=== PATIENT | female | born 1950 | race Caucasian/White ===

== ENCOUNTER → 2018-03-26 | Outpatient (CLI) | payer MEDICARE, OTHER ==
[~2018-03-26] MED LIST: FEXPSEER PO
[2018-03-28 15:07] LABS: HPV 16 Negative (Negative); HPV 18 Negative (Negative); HPV OTHER HR TYPES Negative (Negative)
== END ==
LOC: LAB SHORT 18:04 → LAB 18:04
PROVIDERS: Nurse Practitioner Women's Health
DX: Z12.4 Encounter for screening for malignant neoplasm of cervix (principal); Z91.89 Other specified personal risk factors, not elsewhere classified
CPT/HCPCS: 87624; G0123

== ENCOUNTER → 2019-06-12 | Outpatient (CLI) | payer MEDICARE, OTHER ==
[2019-06-17 15:07] LABS: HPV 16 Negative (Negative); HPV 18 Negative (Negative); HPV OTHER HR TYPES Negative (Negative)
== END | disposition home or self-care (01) ==
LOC: LAB SHORT 12:58 → LAB 12:58
PROVIDERS: Nurse Practitioner Women's Health
DX: Z12.4 Encounter for screening for malignant neoplasm of cervix (principal); Z91.89 Other specified personal risk factors, not elsewhere classified
CPT/HCPCS: 87624; G0123

== ENCOUNTER 2023-03-13 08:31 | Day surgery (SDC) | payer MEDICARE, OTHER ==
[2023-03-13] VITALS (17 sets, daily range): BP systolic 95–149; BP diastolic 51–81
[~2023-03-13] VITALS: Ht 160 cm; Wt 79.6 kg
[~2023-03-13 08:31] MED LIST changes: +HYDR1TAB94 PO; +L-LYSINE500 M1 PO; +LOSA25 PO; +MAGCHL64ER PO; +MELO7.5 PO; +MULVITA PO; +TERB250 PO; +VITAMIN D310 MC4 PO
[2023-03-13] MEDS ORDERED: MAGNESIUM (10:08)
[2023-03-13] MEDS ORDERED: CALCIUM CIT 311 EAC7 (10:11)
--- NOTE | 2023-03-13 10:55 | NUR ---
W/C inTO Day Surgery. Patient confirms NPO status and agrees with scheduled surgery. Pre-Op teaching done. Pt verbalizes understanding. History, Chart, Medications and Allergies reviewed before start of procedure.
--- NOTE | 2023-03-13 17:55 | NUR ---
ADMIT NOTE NEW ADMIT TO UNIT POD [address] BLANK. ALERT, ORIENTED, PLEASANT, AND COOPERATIVE. SPOUSE AND SISTER ATTENTIVE AT BEDSIDE. POST OP VSS. ROOM AIR. DENIES CHEST PAIN AND SOB. TOLERATING REGULAR DIET AND LIQUIDS. SALINE LOCKED. REPORTS MILD PAIN TO RIGHT KNEE, MEDICATED PER EMAR. SPINAL WEARING OFF WELL, REPORTS FULL SENSATION TO BLE, WIGGLES TOES AND ANKLES BILAT. R INCISION WNL UNDER AQUACEL, MABEL WRAP COMPRESSION STOCKING, SCD'S, AND POLAR PACK. NOT UP OUT OF BED AT THIS TIME. NO VOID AT THIS TIME.
[2023-03-14 04:06] VITALS: BP 114/81
[2023-03-14 04:27] LABS: BASOPHILS ABSOLUTE AUTO 0.02 K/mm3 (0.00-0.23); BASOPHILS PERCENT AUTO 0 % (0-2); EOSINOPHILS PERCENT AUTO 0 % (0-6); Hematocrit 37.7 % (33.0-51.0); Hemoglobin 12.5 g/dL (11.5-16.0); IMMATURE GRAN ABSOLUTE AUTO 0.06 K/mm3 (0.00-0.10); IMMATURE GRAN PERCENT AUTO 0 % (0-1); LYMPHOCYTES PERCENT AUTO 10 % (21-46); MONOCYTES ABSOLUTE AUTO 0.82 K/mm3 (0.16-1.47); MONOCYTES PERCENT AUTO 5 % (4-13); Mean Corpuscular HGB 30.2 pg (26.0-34.0); Mean Corpuscular HGB Conc 33.2 g/dL (31.5-36.5); Mean Corpuscular Volume 91 fL (80-100); Mean Platelet Volume 10.2 fL (9.1-12.4); NEUTROPHILS ABSOLUTE AUTO 13.53 K/mm3 (1.96-9.15); NEUTROPHILS PERCENT AUTO 84 % (41-73); Platelet Count 241 K/mm3 (150-400); RDW Coefficient Variation 13.3 % (11.7-14.2); RDW Standard Deviation 44.5 fL (35.1-46.3); Red Blood Cell Count 4.14 M/mm3 (3.80-5.20); White Blood Cell Count 16.03 K/mm3 (4.00-11.30)
--- NOTE | 2023-03-14 04:59 | NUR ---
SHIFT SUMMARY POD 1 R TKA, POLAR PACK IN PLACE, AQUACEL C/D/I. SBA TO BATHROOM W/ FWW/ GB, TOLERATED WELL. PT W/ HIGH ANXIETY AND WORRISOME. A&OX4, PLEASANT AND COOPERATIVE, VSS. NO ACUTE CHANGES THIS SHIFT. PT PLANS FOR DC TODAY. CALL LIGHT W/IN REACH
[2023-03-14 05:05] LABS: Bun/Creatinine Ratio 19.9 (12.0-20.0); Calcium, Blood 8.4 mg/dL (8.5-10.1); Creatinine, Blood 0.75 mg/dL (0.40-1.00); Potassium, Blood 4.2 mmol/L (3.5-5.5)
[2023-03-14 07:09] VITALS: BP 129/74
[2023-03-14] MEDS ORDERED: Percocet 5-3251 EACH PO (07:56)
[2023-03-14] MEDS ORDERED: ASPI81CH PO (07:56)
--- NOTE | 2023-03-14 11:01 | NUR ---
DISCHARGE PT HAS CLEARED THERAPY. PAIN WELL CONTROLLED w TYLENOL ONLY. VERY CONCERNED OF DEVELOPING NAUSEA; ZOFRAN SCRIPT CALLED IN. EATING, DRINKING, & VOIDING WELL. DARIELA & KARIS FOY SENT w/ PT. ESCORTED OUT VIA W/C.
== END 2023-03-14 11:01 | disposition home or self-care (01) ==
LOC: ORSCMMR 08:31 → ORD 10:00 → ORSCMMR 10:00 → ORD 11:15 → SURS 15:31 → ORSCMMR 03-14 11:01
PROVIDERS: Orthopaedic Surgery
PROC: 0SRC0JA Replacement of Right Knee Joint with Synthetic Substitute, Uncemented, Open Approach (ICD-10-PCS; principal; 2023-03-13 10:00)
DX: M17.11 Unilateral primary osteoarthritis, right knee (principal); I10 Essential (primary) hypertension; Z79.899 Other long term (current) drug therapy
CPT/HCPCS: 36415; 73560-RT; 80048; 85025; 97110; 97116; 97161; A9270; C1776; J0171; J0690; J0735; J1100; J1170; J1885; J2250; J2371; J2405; J2704; J2795; J3010; J7120

== ENCOUNTER → 2024-06-03 | Outpatient (CLI) | payer MEDICARE, OTHER ==
[~2024-06-03] MED LIST changes: +ASPI81CH PO; +CALCIUM CIT 311 EAC7; +MAGNESIUM; +Percocet 5-3251 EACH PO
[2024-06-03 15:27] LABS: Campylobacter Sp Not Detected (NOT DETECT); Plesiomonas Shigelloides Not Detected (NOT DETECT); Salmonella Sp Not Detected (NOT DETECT); Vibrio Sp Not Detected (NOT DETECT); Yersinia Enterocolitica Not Detected (NOT DETECT)
[2024-06-03 15:28] LABS: Adenovirus F 40/41 Not Detected (NOT DETECT); Astrovirus Not Detected (NOT DETECT); Cryptosporidium Not Detected (NOT DETECT); Cyclospora Cayetanensis Not Detected (NOT DETECT); E. Coli O157 Not Detected (NOT DETECT); Entamoeba Histolytica Not Detected (NOT DETECT); Enteroaggregative E. coli-EAEC Not Detected (NOT DETECT); Enteropathogenic E. coli-EPEC Not Detected (NOT DETECT); Enterotoxigenic E. coli-ETEC Not Detected (NOT DETECT); Giardia Lamblia Not Detected (NOT DETECT); Norovirus GI/GII Not Detected (NOT DETECT); Rotavirus A Not Detected (NOT DETECT); Sapovirus Not Detected (NOT DETECT); Shiga Toxin-prod E. coli-STEC Not Detected (NOT DETECT); Shigella/Enteroin E. coli-EIEC Not Detected (NOT DETECT); Vibrio Cholerae Not Detected (NOT DETECT)
== END ==
LOC: LAB 08:50 → LAB SHORT 08:50
PROVIDERS: Family Medicine
DX: R19.7 Diarrhea, unspecified (principal); R10.84 Generalized abdominal pain
CPT/HCPCS: 87338; 87507